=== PATIENT | male | born 1980 | race Hispanic/Latino ===

== ENCOUNTER 2020-09-07 12:31 | Emergency (ER) | payer SELFPAY ==
[2020-09-07 14:22] LABS: #Eosinphils 0.1 thou/uL (0.0-0.7); #Monocytes 0.4 thou/uL (0.11-0.59); #Neutrophils 8.3 thou/uL (1.40-6.50); %Basophils 0.1 % (0.0-1.0); %Eosinophils 0.6 % (0.0-10.0); %Monocytes 3.7 % (0.0-10.0); %Neutrophils 85.5 % (42.0-75.0); Hemoglobin 14.9 g/dL (14.0-18.0); Mean Corpuscular HGB CONC 34.3 g/dL (32.0-36.0); Mean Corpuscular Hemoglobin 33.6 pg (27.0-31.0); Mean Platelet Volume 9.3 fL (7.4-10.4); Platelet Count 155 thou/uL (130-400); RBC Distribution Width 11.9 % (11.5-14.5); Red Blood Cell (RBC) Count 4.42 mill/uL (4.70-6.10); White Blood Cell (WBC) Count 9.7 thou/uL (4.8-10.8)
[2020-09-07 14:52] LABS: ALT (SGPT) 13 U/L (8-55); AST (SGOT) 16 U/L (5-34); Albumin 3.9 g/dL (3.5-5.0); Alkaline Phosphatase 50 U/L (40-110); Anion Gap 10 mmol/L (10-20); BUN (Urea Nitrogen) 14 mg/dL (8.9-20.6); Bilirubin, Total 0.7 mg/dL (0.2-1.2); Calc. Creatinine Clearance 0 mL/min (70-130); Calcium 8.7 mg/dL (7.8-10.44); Carbon Dioxide 23 mmol/L (22-29); Chloride 109 mmol/L (98-107); Glucose 102 mg/dL (70-105); Potassium 3.9 mmol/L (3.5-5.1); Protein, Total 6.9 g/dL (6.0-8.3); Sodium 138 mmol/L (136-145)
[2020-09-07 14:54] LABS: Bilirubin Negative (Negative); Blood, Urine Negative (Negative); Glucose, Urine (Dipstick) Negative (Negative); Ketone, Urine Negative (Negative); Leukocyte Negative (Negative); Nitrite Negative (Negative); Protein, Urine (Dipstick) Negative (Neg-Trace); Urobilinogen 0.2 mg/dL (Less than 2)
[2020-09-07 15:01] LABS: Clarity Clear (Clear)
[2020-09-07 15:03] LABS: RBC/HPF 0-3 HPF (0-3); Squamous Epithelial None Seen HPF (0-3); WBC/HPF None Seen HPF (0-3)
[2020-09-07 15:04] LABS: Bacteria/HPF 1+ HPF (None Seen)
== END 2020-09-07 15:39 | disposition home or self-care (01) ==
LOC: ERS 12:31
DX: E86.0 Dehydration (principal); F41.9 Anxiety disorder, unspecified
CPT/HCPCS: 36415; 80053; 81003; 85025; 93005

== ENCOUNTER 2023-06-05 19:56 | Observation (INO) | payer OTHER ==
[2023-06-05] MEDS ORDERED: Morphine 4 MG/ML VIAL SLOW IVP PRN (20:33)
[2023-06-05] MEDS ORDERED: Meperidine HCl/PF 25 MG (1 mL) VIAL SLOW IVP PRN (20:34)
[2023-06-05] MEDS ORDERED: traMADol HCl 50 MG TAB PO PRN (20:34)
[2023-06-05 21:17] VITALS: BMI 40.6
[2023-06-05] MEDS: CEFAZOLIN 2 GM in Sodium Chloride 0.9% 100 ML IVPB SCH (22:34)
[2023-06-05] MEDS: Dextrose 5 % And 0.9 % NaCl 1,000 ML IV SCH (22:36)
[2023-06-05] MEDS: Gentamicin Sulfate 80 MG in Premix 1 BAG IVPB SCH (23:28)
[2023-06-06] MEDS ORDERED: PROPOFOL 40 ML ONE (08:00)
[2023-06-06] MEDS ORDERED: Fentanyl 250 MCG/5 ML VIAL ONE (08:00)
[2023-06-06] MEDS ORDERED: Bacitracin Zinc Ointment 30 gm TUBE ONE (08:15)
[2023-06-06] MEDS ORDERED: Bupivacaine PF 0.5% 30 ML VIAL ONE (08:15)
[2023-06-06] MEDS ORDERED: Dexamethasone 20 MG/5 ML VIAL ONE (08:40)
[2023-06-06] MEDS ORDERED: Ondansetron PF 4 MG/2 ML Vial ONE (09:06)
[2023-06-06] MEDS ORDERED: Ketorolac Tromethamine 30 MG (1 mL) VIAL ONE ×2 (09:08→09:12)
[2023-06-06] MEDS ORDERED: HYDROmorphone 2 MG/ML VIAL SLOW IVP PRN (09:17)
[2023-06-06] MEDS ORDERED: Promethazine HCl 25 MG/ML VIAL IM PRN (09:17)
[2023-06-06] MEDS ORDERED: Morphine Sulfate 2 MG/ML SYRINGE SLOW IVP PRN (09:17)
[2023-06-06] MEDS ORDERED: PACU-Morphine 4MG/ML VIAL SLOW IVP PRN (09:17)
[2023-06-06] MEDS ORDERED: Ondansetron HCl/PF 4 MG/2 ML Vial IVP PRN (09:17)
[2023-06-06] MEDS ORDERED: Dexmedetomidine 200 MCG/2 ML VIAL ONE (09:34)
[2023-06-06 16:04] VITALS: BP 144/95; TEMP 98.2
== END 2023-06-06 15:55 | disposition home or self-care (01) ==
LOC: SDC 19:56 → INTOOBSV 20:16 → SJJU 20:16
PROVIDERS: ADMIT Orthopaedic Surgery Hand Surgery; ATTEND Orthopaedic Surgery Hand Surgery
PROC: 0PSV04Z Reposition Left Finger Phalanx with Internal Fixation Device, Open Approach (ICD-10-PCS; principal; 2023-06-06)
DX: S62.637B Displaced fracture of distal phalanx of left little finger, initial encounter for open fracture (principal); X58.XXXA Exposure to other specified factors, initial encounter
CPT/HCPCS: 90715; 96365; 96367; 96376; A6223; G0378; J0665; J0690; J1100; J1580; J1885; J2001; J2405; J2704; J3010; J3490; J7042